=== PATIENT | female | born 1980 | race Caucasian/White ===

== ENCOUNTER 2017-11-27 00:18 | Emergency (ER) | payer OTHER ==
[2017-11-27 01:33] LABS: #Eosinphils 0.2 thou/uL (0.0-0.7); #Monocytes 0.8 thou/uL (0.11-0.59); #Neutrophils 4.3 thou/uL (1.40-6.50); %Basophils 0.5 % (0.0-1.0); %Eosinophils 2.4 % (0.0-10.0); %Lymphocytes 27.1 % (21.0-51.0); Hemoglobin 11.7 g/dL (12.0-16.0); Mean Corpuscular HGB CONC 31.5 g/dL (32.0-36.0); Mean Corpuscular Hemoglobin 26.5 pg (27.0-31.0); Mean Platelet Volume 7.7 fL (7.4-10.4); Platelet Count 377 thou/uL (130-400); Red Blood Cell (RBC) Count 4.41 mill/uL (4.20-5.40); White Blood Cell (WBC) Count 7.3 thou/uL (4.8-10.8)
[2017-11-27 01:33] LABS: Bilirubin Negative (Negative); Blood, Urine Negative (Negative); Clarity CLEAR (Clear); Glucose, Urine (Dipstick) Negative (Negative); Leukocyte Small (Negative); Nitrite Negative (Negative); Protein, Urine (Dipstick) Negative (Neg-Trace); Specific Gravity, Urine 1.013 (1.002-1.036)
[2017-11-27 01:45] LABS: Bacteria/HPF None Seen HPF (None Seen); Crystals/HPF None Seen HPF (Negative); Hyaline Casts/LPF NONE SEEN LPF (0-3 Hyaline); Medtox Reader # READER 4; RBC/HPF None Seen HPF (0-3); Renal Epithelial None Seen HPF (0-3); Squamous Epithelial 0-3 HPF (0-3); Transitional Epithelial NONE SEEN HPF (0-3); WBC/HPF 0-3 HPF (0-3)
[2017-11-27 01:46] LABS: Acetaminophen Less than 6.0 mcg/mL (10.0-30.0); Alcohol Less than 10 mg/dL (Less than 10); Amphetamine Detected (NotDetected); Barbiturates Screen Not Detected (NotDetected); Benzodiazepine Screen Not Detected (NotDetected); Cocaine Metabolite Screen Not Detected (NotDetected); Medtox Control Line Valid? VALID (VALID); Methadone Not Detected (NotDetected); Methamphetamine Detected (NotDetected); Opiate Screen Not Detected (NotDetected); Oxycodone Screen Not Detected (NotDetected); Phencyclidine (PCP) Not Detected (NotDetected); Salicylate Less than 8.0 mg/dL (15.0-30.0); THC/Cannabinoid Screen Detected (NotDetected); Tricyclic Screen Not Detected (NotDetected)
[2017-11-27 01:49] LABS: ALT (SGPT) 13 U/L (8-55); AST (SGOT) 14 U/L (5-34); Albumin 4.2 g/dL (3.5-5.0); Alkaline Phosphatase 65 U/L (40-150); Anion Gap 10 mmol/L (10-20); BUN (Urea Nitrogen) 14 mg/dL (7.0-18.7); Bilirubin, Total 0.2 mg/dL (0.2-1.2); CK (CPK) 161 U/L (29-168); Calc. Creatinine Clearance 0 mL/min (70-130); Carbon Dioxide 24 mmol/L (22-29); Chloride 109 mmol/L (98-107); Estimated GFR-MDRD 81; Globulin 2.8 g/dL (2.4-3.5); Glucose 90 mg/dL (70-105); Potassium 3.6 mmol/L (3.5-5.1); Sodium 139 mmol/L (136-145)
[2017-11-27 10:31] LABS: Pregnancy Test - Urine (BHCG) Negative (Negative); Pregu Control Background? CLEAR/WHITE (CLR/WHITE); Pregu Control Bar Appear? YES (CONTROL BAR); Specific Gravity 1.013 (1.002-1.036)
[2017-11-28] MEDS ORDERED: hydrOXYzine Pamoate 25 mg Capsule PO SCH (20:45)
== END 2017-11-29 14:12 ==
LOC: ERS 00:18
DX: T44.3X1A Poisoning by other parasympatholytics [anticholinergics and antimuscarinics] and spasmolytics, accidental (unintentional), initial encounter (principal); F15.10 Other stimulant abuse, uncomplicated; I10 Essential (primary) hypertension; F17.210 Nicotine dependence, cigarettes, uncomplicated
CPT/HCPCS: 36415; 80053; 80306; 80307; 81003; 81015; 81025; 82550; 84443; 85025; 93005; 94760; 99406; Q0177

== ENCOUNTER 2019-01-16 20:51 | Emergency (ER) | payer OTHER ==
[2019-01-16 21:35] LABS: #Eosinphils 0.4 thou/uL (0.0-0.7); #Lymphocytes 3.1 thou/uL (1.20-3.40); #Monocytes 0.7 thou/uL (0.11-0.59); #Neutrophils 3.5 thou/uL (1.40-6.50); %Basophils 0.5 % (0.0-1.0); %Eosinophils 4.7 % (0.0-10.0); %Lymphocytes 40.6 % (21.0-51.0); %Neutrophils 45.1 % (42.0-75.0); Hemoglobin 13.2 g/dL (12.0-16.0); Mean Corpuscular HGB CONC 34.2 g/dL (32.0-36.0); Mean Corpuscular Hemoglobin 30.4 pg (27.0-31.0); Mean Corpuscular Volume 88.9 fL (78.0-98.0); Mean Platelet Volume 7.5 fL (7.4-10.4); Platelet Count 268 thou/uL (130-400); RBC Distribution Width 12.6 % (11.5-14.5); Red Blood Cell (RBC) Count 4.34 mill/uL (4.20-5.40); White Blood Cell (WBC) Count 7.7 thou/uL (4.8-10.8)
[2019-01-16 21:36] LABS: Bilirubin Negative (Negative); Blood, Urine Negative (Negative); Clarity CLEAR (Clear); Glucose, Urine (Dipstick) Negative (Negative); Leukocyte Moderate (Negative); Nitrite Positive (Negative); Protein, Urine (Dipstick) Negative (Neg-Trace); Specific Gravity, Urine 1.014 (1.002-1.036); Urobilinogen 0.2 mg/dL (0.2-1.0)
[2019-01-16 21:38] LABS: Bacteria/HPF 4+ HPF (None Seen); Hyaline Casts/LPF 0-3 HYALINE CAST LPF (0-3 Hyaline); Pathc Cast-AUWi Flag 0.27 (0-2.49); Squamous Epithelial 0-3 HPF (0-3); WBC/HPF 21-50 HPF (0-3)
[2019-01-16 21:55] LABS: ALT (SGPT) 11 U/L (8-55); AST (SGOT) 16 U/L (5-34); Albumin 4.4 g/dL (3.5-5.0); Alkaline Phosphatase 57 U/L (40-150); Anion Gap 13 mmol/L (10-20); BUN (Urea Nitrogen) 15 mg/dL (7.0-18.7); Bilirubin, Total 0.2 mg/dL (0.2-1.2); Calc. Creatinine Clearance 0 mL/min (70-130); Calcium 9.7 mg/dL (7.8-10.44); Carbon Dioxide 21 mmol/L (22-29); Chloride 106 mmol/L (98-107); Estimated GFR-MDRD 76; Globulin 2.8 g/dL (2.4-3.5); Glucose 91 mg/dL (70-105); Potassium 4.1 mmol/L (3.5-5.1); Protein, Total 7.2 g/dL (6.0-8.3); Sodium 136 mmol/L (136-145)
[2019-01-16 22:14] LABS: BHCG - Serum Negative (NEGATIVE); Pregs Control Background? CLEAR/WHITE (CLR/WHITE); Pregs Control Bar Appear? YES (CONTROL BAR)
[2019-01-16] MEDS ORDERED: Morphine 4 MG/ML VIAL ONE (23:10)
[2019-01-16] MEDS ORDERED: Ondansetron PF 4 MG/2 ML Vial ONE (23:10)
--- NOTE | 2019-01-16 23:12 | CT ---
Noncontrast enhanced images abdomen pelvis. HISTORY: Abdominal pain. The lung bases are unremarkable. No evidence of free intraperitoneal air seen. The liver and spleen are unremarkable. The gallbladder is contracted. The pancreas is unremarkable. Adrenal glands unremarkable. No evidence of periaortic lymphadenopathy seen. The left kidney is unremarkable. There is moderate severe right-sided hydroureteronephrosis. The right ureter is dilated along its ent reggie course. No definite evidence of obstructing right ureteral calculi seen. A ureteral soft tissue mass however cannot be excluded. Correlate with right-sided retrograde evaluation. The right ureter w as not dilated on the patient's previous CT from August 2016. A normal appendix is visualized. The small bowel and colon are unremarkable. IMPRESSION: Abnormally dilated right ureter and right-sided hydronephrosis. Nonradiopaque distal uret eral calculus or possible mass cannot be excluded. Correlate with urological consultation. Transcribed Date/Time: 01/16/2019 11:22 PM
[2019-01-16] MEDS ORDERED: cefTRIAXone\\ROCEPHIN 1 GM VIAL ONE (23:50)
[2019-01-16] MEDS ORDERED: Sodium Chloride 0.9% 100 ML ONE (23:50)
[2019-01-16] MEDS ORDERED: cefTRIAXone\\ROCEPHIN 2 GM VIAL ONE (23:52)
[2019-01-16] MEDS ORDERED: Ketorolac Tromethamine 30 MG/ML VIAL ONE (23:52)
--- NOTE | 2019-01-17 09:01 | ULT ---
PRELIMINARY REPORT/[facility]/EMERGENCY AFTER HOURS PROCEDURE: EXAM: US Duplex Artery or Vein of the Abdominal and/or Reproductive Organs, Limited EXAM DATE/TIME: 01/17/2019 1:04 AM CLINICAL HISTORY: 38 years old, female; Pain and signs and symptoms; Bladder; Other: ? RT calculus; Patient HX: F38 wit h a HX of kidney stones presents to ED with C/O R sided flank pain, onset a few days ago with associa macie dysuria. Denies n/v/d. Reports that the pain is similar to the last time she had a kidney stone. Pelvic pain. ; Additional info: CT scan revealed dilated ureter with a questionable RT dst calculus. TECHNIQUE: Imaging protocol: Real-time duplex ultrasound scan of the arterial or venous flow of the abdomen and/ or reproductive organs, with color Doppler flow and spectral waveform analysis. COMPARISON: No relevant prior studies available. FINDINGS: Ovaries: The left ovary is normal in appearance with normal flow by color Doppler and spectral waveform analys is of arterial flow. No ovarian mass or abnormal cysts. The left ovary measures 3.7 x 2.1 x 2.7 cm. The right ovary could not be identified secondary to bowel gas. IMPRESSION: 1. No evidence of left ovarian torsion. 2. The right ovary was not visualized. EXAM: US Pelvis Complete, Transabdominal and US Pelvis, Transvaginal EXAM DATE/TIME: 01/17/2019 1:04 AM CLINICAL HISTORY: 38 years old, female; Pain and signs and symptoms; Bladder; Other: ? RT calculus; Patient HX: F38 wit h a HX of kidney stones presents to ED with C/O R sided flank pain, onset a few days ago with associa macie dysuria. Denies n/v/d. Reports that the pain is similar to the last time she had a kidney stone. Pelvic pain. ; Additional info: CT scan revealed dilated ureter with a questionable RT dst calculus. TECHNIQUE: Imaging protocol: Real-time transabdominal and transvaginal pelvic ultrasound (complete) with image d ocumentation. Transvaginal imaging was used for better evaluation of the endometrium and adnexa. COMPARISON: No relevant prior studies available. FINDINGS: Uterus/cervix: The uterus measures 8.2 x 4.7 x 6 cm. No uterine masses. The endometrium measures 0.8 cm in thickness. Normal appearance of the cervix. Incidental 0.3 x 0.2 x 0.[address] ructure. Incidental nabothian cyst. Right adnexa: The right ovary could not be identified secondary to bowel gas. Left adnexa: The left ovary is normal in appearance with normal flow by color Doppler and spectral wa veform analysis of arterial flow. No ovarian mass or abnormal cysts. The left ovary measures 3.7 x 2. 1 x 2.7 cm. Free fluid: None. Bladder: Normal sonographic appearance of the bladder. Bilateral urinary jets visualized. Dilated ure ter is not visualized. IMPRESSION: 1. No acute pelvic findings. 2. Normal appearance of the left ovary. The right ovary could not be visualized. 3. Normal sonographic appearance of the bladder with bilateral urinary jets visualized. Thank you for allowing us to participate in the care of your patient. Dictated and Authenticated by: Preethi Dash MD 01/17/2019 2:43 AM Central Time ([place] & [place]) FINAL REPORT PELVIC ULTRASOUND: HISTORY: Right flank pain. History of kidney stones. FINDINGS: Real-time imaging of the pelvis was obtained transabdominally as well as with an endovaginal probe. This shows a uterus measuring 8.1 cm in length. Endometrium is slightly thickened in the 8 mm range. The right ovary is not visualized. The left ovary is also more difficult to visualize. There does a ppear to be ____ of the left adnexa. DOPPLER EVALUATION WITH SPECTRAL ANALYSIS: Normal flow is shown toto the ovaries. IMPRESSION: Slightly thickened endometrium with visualization of the right ovary. This report is in agreement with the temporary report issued by [facility]. POS: [facility]
== END 2019-01-17 03:16 | disposition home or self-care (01) ==
LOC: ERS 20:51
DX: N13.30 Unspecified hydronephrosis (principal); F41.9 Anxiety disorder, unspecified; F32.9 Major depressive disorder, single episode, unspecified; F17.210 Nicotine dependence, cigarettes, uncomplicated; Z79.899 Other long term (current) drug therapy
CPT/HCPCS: 36415; 74176; 76856; 80053; 81003; 81015; 83690; 84703; 85025; 87077; 87086; 87186; 96361; 96365; 96375; J0696; J1885; J2270; J2405; J3490

== ENCOUNTER 2019-07-01 09:24 | Emergency (ER) | payer OTHER | END 2019-07-01 11:21 | disposition home or self-care (01) | LOC: ERS 09:24 | DX: J02.9 Acute pharyngitis, unspecified (principal); F41.9 Anxiety disorder, unspecified; F32.9 Major depressive disorder, single episode, unspecified; F17.210 Nicotine dependence, cigarettes, uncomplicated | CPT/HCPCS: 99281 ==

== ENCOUNTER 2020-04-29 16:26 | Emergency (ER) | payer OTHER ==
[2020-04-29] MEDS ORDERED: Morphine 4 MG/ML VIAL ONE (16:43)
[2020-04-29] MEDS ORDERED: Ondansetron PF 4 MG/2 ML Vial ONE (16:43)
[2020-04-29] MEDS ORDERED: Ketorolac Tromethamine 30 MG/ML VIAL ONE (16:43)
[2020-04-29 16:50] LABS: #Lymphocytes 1.2 thou/uL (1.20-3.40); #Monocytes 1.4 thou/uL (0.11-0.59); #Neutrophils 10.9 thou/uL (1.40-6.50); %Eosinophils 0.2 % (0.0-10.0); %Lymphocytes 8.8 % (21.0-51.0); %Monocytes 10.2 % (0.0-10.0); %Neutrophils 80.8 % (42.0-75.0); Hemoglobin 12.4 g/dL (12.0-16.0); Mean Corpuscular Hemoglobin 29.6 pg (27.0-31.0); Mean Corpuscular Volume 89.6 fL (78.0-98.0); Mean Platelet Volume 7.8 fL (7.4-10.4); Platelet Count 293 thou/uL (130-400); RBC Distribution Width 13.2 % (11.5-14.5); Red Blood Cell (RBC) Count 4.18 mill/uL (4.20-5.40); White Blood Cell (WBC) Count 13.4 thou/uL (4.8-10.8)
[2020-04-29 17:08] LABS: ALT (SGPT) 19 U/L (8-55); AST (SGOT) 17 U/L (5-34); Albumin 3.5 g/dL (3.5-5.0); Alkaline Phosphatase 73 U/L (40-110); Anion Gap 14 mmol/L (10-20); BUN (Urea Nitrogen) 8 mg/dL (7.0-18.7); Bilirubin, Total 0.3 mg/dL (0.2-1.2); Calc. Creatinine Clearance 0 mL/min (70-130); Calcium 8.1 mg/dL (7.8-10.44); Carbon Dioxide 21 mmol/L (22-29); Chloride 103 mmol/L (98-107); Estimated GFR-MDRD Greater than 90; Globulin 2.7 g/dL (2.4-3.5); Glucose 89 mg/dL (70-105); Potassium 3.5 mmol/L (3.5-5.1); Protein, Total 6.2 g/dL (6.0-8.3); Sodium 134 mmol/L (136-145)
--- NOTE | 2020-04-29 17:08 | CT ---
CT abdomen and pelvis noncontrast HISTORY: Right flank pain. COMPARISON: 01/16/2019. FINDINGS: Mild distention of the right renal collecting system and proximal ureter less pronounced th an on the prior study. Wall thickening and adjacent stranding have increased slightly. Distal ureters decompressed. No stone evident. Left renal collecting system, ureter, and urinary bladder are decompressed. No stone evident. Lack of contrast limits evaluation of the soft tissues. No evidence of bowel obstruction or inflammat ion. IMPRESSION : Mild, chronic distention of the right renal collecting system and proximal ureter. No stones visible. Cause is not apparent. Slightly less pronounced than the 01/16/2019 study. Inflammation involving the gillette of the proximal ureter and the right kidney has increased slightly, however. Clinical correlation regarding other signs and symptoms of right pyelonephritis is required.
[2020-04-29] MEDS ORDERED: cefTRIAXone\\ROCEPHIN 2 GM VIAL ONE (17:21)
[2020-04-29 17:26] LABS: Bacteria/HPF 2+ HPF (None Seen); Bilirubin Negative (Negative); Blood, Urine Negative (Negative); Clarity Clear (Clear); Glucose, Urine (Dipstick) Normal (Negative); Ketone, Urine 80 mg/dL (Negative); Leukocyte 25 Leu/uL (Negative); Nitrite Negative (Negative); Protein, Urine (Dipstick) 10 mg/dL (Neg-Trace); RBC/HPF 0-3 HPF (0-3); Specific Gravity, Urine 1.011 (1.002-1.036); Squamous Epithelial 0-3 HPF (0-3); Urobilinogen Normal mg/dL (Less than 2)
[2020-04-29 17:27] LABS: Pregnancy Test - Urine (BHCG) Negative (Negative); Pregu Control Background? CLEAR/WHITE (CLR/WHITE); Pregu Control Bar Appear? YES (CONTROL BAR); Specific Gravity 1.011 (1.002-1.036)
== END 2020-04-29 18:20 | disposition home or self-care (01) ==
LOC: ERS 16:26
DX: N10 Acute pyelonephritis (principal); F17.210 Nicotine dependence, cigarettes, uncomplicated; F41.9 Anxiety disorder, unspecified; F32.9 Major depressive disorder, single episode, unspecified
CPT/HCPCS: 74176; 80053; 81003; 81015; 81025; 85025; 96365; 96375; J0696; J1885; J2270; J2405

== ENCOUNTER 2023-09-07 20:15 | Emergency (ER) | payer OTHER ==
[2023-09-07] MEDS ORDERED: LORazepam 2 MG/ML SYR.(CARPUJECT) ONE (20:36)
[2023-09-07 20:44] LABS: #Eosinphils 0.1 thou/uL (0.0-0.7); #Monocytes 0.6 thou/uL (0.11-0.59); %Basophils 0.6 % (0.0-1.0); %Eosinophils 1.4 % (0.0-10.0); %Lymphocytes 39.4 % (21.0-51.0); %Monocytes 10.1 % (0.0-10.0); %Neutrophils 48.2 % (42.0-75.0); Hematocrit 35.3 % (36.0-47.0); Hemoglobin 11.4 g/dL (12.0-16.0); Mean Corpuscular HGB CONC 32.3 g/dL (32.0-36.0); Mean Corpuscular Hemoglobin 26.4 pg (27.0-31.0); Mean Corpuscular Volume 81.7 fl (78.0-98.0); Mean Platelet Volume 9.1 fL (7.4-10.4); Platelet Count 368 10x3/uL (130-400); RBC Distribution Width 16.9 % (11.5-14.5); Red Blood Cell (RBC) Count 4.32 mill/uL (4.20-5.40); White Blood Cell (WBC) Count 6.2 10x3/uL (4.8-10.8)
[2023-09-07 21:08] LABS: ALT (SGPT) 16 U/L (8-55); AST (SGOT) 18 U/L (5-34); Albumin 3.7 g/dL (3.5-5.0); Alkaline Phosphatase 61 U/L (40-110); BUN (Urea Nitrogen) 10 mg/dL (7.0-18.7); Bilirubin, Total Less than 0.2 mg/dL (0.2-1.2); Calc. Creatinine Clearance 0 mL/min (70-130); Calcium 8.6 mg/dL (7.8-10.44); Carbon Dioxide 24 mmol/L (22-29); Chloride 109 mmol/L (98-107); Estimated GFR 104; Globulin 2.4 g/dL (2.4-3.5); Glucose 117 mg/dL (70-105); Potassium 3.7 mmol/L (3.5-5.1); Protein, Total 6.1 g/dL (6.0-8.3); Sodium 138 mmol/L (136-145)
[2023-09-07 21:09] LABS: Troponin I Less than 0.010 ng/mL (< 0.028)
[2023-09-07 22:00] LABS: Anion Gap 9 mmol/L (10-20)
== END 2023-09-07 21:23 | disposition home or self-care (01) ==
LOC: ERS 20:15
DX: F43.0 Acute stress reaction (principal); I10 Essential (primary) hypertension; F17.210 Nicotine dependence, cigarettes, uncomplicated
CPT/HCPCS: 36415; 71045; 80053; 84484; 85025; 93005; 96374; J2060